=== PATIENT | male | born 1980 | race Two or more races ===

== ENCOUNTER 2016-09-22 14:29 | Emergency (ER) | payer SELFPAY ==
[2016-09-22] MEDS ORDERED: DIPH/PERTUSS(ACELL)/TETANUS VAC/PF 0.5 ML SYR (>=10YO) IM ONE (14:55)
--- NOTE | 2016-09-22 14:57 | ER Document Report ---
ED Medical Screen (RME) - General Chief Complaint: Puncture Wound to Foot Stated Complaint: LEFT FOOT INJURY Time seen by provider: 14:55 Mode of Arrival: Ambulatory Information source: Patient Notes: 35-year-old male punctured his plantar surface left foot near the fourth toe with a kalyani nail through a sneaker just prior to arrival. Tetanus is not current. TRAVEL OUTSIDE OF THE [place] IN LAST 30 DAYS: No - Related Data Allergies/Adverse Reactions: No Known Allergies Allergy (Verified 09/22/16 14:42) Past Medical History - Social History Chew tobacco use (# tins/day): No - Immunizations Hx Diphtheria, Pertussis, Tetanus Vaccination: - UNKNOWN Physical Exam - Vital signs Vitals: Temp Pulse Resp BP Pulse Ox 97.7 F 87 16 131/73 H 98 09/22/16 14:34 09/22/16 14:34 09/22/16 14:34 09/22/16 14:34 09/22/16 14:34 Course - Vital Signs Vital signs: Temp Pulse Resp BP Pulse Ox 97.7 F 87 16 131/73 H 98 09/22/16 14:34 09/22/16 14:34 09/22/16 14:34 09/22/16 14:34 09/22/16 14:34
[2016-09-22] MEDS ORDERED: CIPROFLOXACIN HCL 500 MG TABLET PO ONE (16:07)
[2016-09-22] MEDS ORDERED: CEPHALEXIN 500 MG CAPSULE PO ONE (16:07)
[2016-09-22] MEDS ORDERED: IBUPROFEN 600 MG TABLET PO ONE (16:10)
--- NOTE | 2016-09-22 16:10 | ER Document Report ---
HPI - HPI Patient complains to provider of: puncture wound to foot Onset: Just prior to arrival Onset/Duration: Sudden Quality of pain: Achy Pain Level: 2 Context: Patient states he was wearing sneakers and stepped on a kalyani nail that went through his shoe into his foot. Patient complains of mild tenderness to foot. Patient is unsure exactly where the nail went through into his foot but states he had a bloody sock Associated Symptoms: Other - Puncture wound to left foot Exacerbated by: Denies Relieved by: Denies Similar symptoms previously: No Recently seen / treated by doctor: No - ROS ROS below otherwise negative: Yes Systems Reviewed and Negative: Yes All other systems reviewed and negative - CONSTITUTIONAL Constitutional: DENIES: Fever - DERM Skin Color: Normal Skin Problems: Puncture Wound Past Medical History - General Information source: Patient - Social History Smoking Status: Never Smoker Chew tobacco use (# tins/day): No Drug Abuse: None Occupation: painting Family History: Reviewed & Not Pertinent Patient has suicidal ideation: No Patient has homicidal ideation: No - Medical History Medical History: Negative Endocrine Medical History: Denies: Hx Diabetes Mellitus Type 1, Hx Diabetes Mellitus Type 2 Surgical Hx: Negative - Immunizations Hx Diphtheria, Pertussis, Tetanus Vaccination: No Vertical Provider Document - CONSTITUTIONAL Agree With Documented VS: Yes Exam Limitations: No Limitations General Appearance: WD/WN, No Apparent Distress - INFECTION CONTROL TRAVEL OUTSIDE OF THE [place] IN LAST 30 DAYS: No - HEENT HEENT: Atraumatic, Normocephalic - NECK Neck: Normal Inspection - RESPIRATORY Respiratory: No Respiratory Distress O2 Sat by Pulse Oximetry: 98 - CARDIOVASCULAR Pulses: Normal: Dorsalis pedis - MUSCULOSKELETAL/EXTREMETIES Musculoskeletal/Extremeties: MAEW, Non-Tender - NEURO Level of Consciousness: Awake, Alert, Appropriate Motor/Sensory: No Motor Deficit - DERM Integumentary: Warm, Dry Notes: Patient with discrete puncture wound to lateral aspect of distal left fourth toe. Normal range of motion to toe. No swelling. Course - Vital Signs Vital signs: Temp Pulse Resp BP Pulse Ox 97.7 F 87 16 131/73 H 98 09/22/16 14:34 09/22/16 14:34 09/22/16 14:34 09/22/16 14:34 09/22/16 14:34 - Diagnostic Test Radiology reviewed: Reports reviewed Discharge - Discharge Clinical Impression: Puncture wound of toe of left foot Qualifiers: Encounter type: initial encounter Qualified Code(s): S91.139A - Puncture wound without foreign body of unspecified toe(s) without damage to nail, initial encounter Condition: Stable Disposition: HOME, SELF-CARE Instructions: Prophylactic Antibiotic ([facility]), Tetanus Immunization Given ([facility]), Soap Cleansing ([facility]), Ciprofloxacin ([facility]), Cephalexin ([facility]) Additional Instructions: Return immediately for any new or worsening symptoms: Redness, increased pain, fever, purulent drainage, or any concerning symptoms Followup with your primary care provider, call tomorrow to make a followup appointment Prescriptions: Cephalexin Monohydrate [Keflex 500 mg Capsule] 500 mg PO Q6H 5 Days Ciprofloxacin HCl [Cipro 500 mg Tablet] 500 mg PO BID #10 tablet Forms: Return to Work Referrals: [facility] [Provider Group] - Follow up as needed
[2016-09-22 16:52] VITALS: BP 117/76
== END 2016-09-22 16:53 | disposition home or self-care (01) ==
LOC: ER 14:29
DX: S91.135A Puncture wound without foreign body of left lesser toe(s) without damage to nail, initial encounter (principal); W45.0XXA Nail entering through skin, initial encounter
CPT/HCPCS: 90471; 90715; 99283